=== PATIENT | male | born 1985 | race Caucasian/White ===

== ENCOUNTER 2021-12-09 06:31 | Emergency (ER) | payer MEDICARE ==
[2021-12-09] MEDS ORDERED: Dexamethasone 4 MG Tab PO ONE (06:44)
[2021-12-09] MEDS ORDERED: Sodium Chloride 0.65% Nasal Spray 45 ML Bottle NAS STA (06:44)
[2021-12-09] MEDS ORDERED: methylPREDNISolone Sodium Succinate 125 MG/2 ML SDV IM ONE (06:49)
[2021-12-09] MEDS ORDERED: Acetaminophen 325 MG Tab PO ONE (07:33)
== END 2021-12-09 08:51 | disposition home or self-care (01) ==
LOC: MW.ED 06:31
DX: J30.89 Other allergic rhinitis (principal); Z20.822 Contact with and (suspected) exposure to COVID-19; Z88.5 Allergy status to narcotic agent
CPT/HCPCS: 96372; 99283; A9270; J2930; J8540; U0002